=== PATIENT | female | born 1950 | race Caucasian/White ===

== ENCOUNTER → 2021-04-09 10:09 | Outpatient (CLI) | payer MEDICARE, BC, SELFPAY ==
--- NOTE | 2021-04-09 10:12 | DI.ECHO.S_ITS ---
[facility]---------+ [facility] +---------+ : : [address] : : : : [id number] : : : : Phone: [phone]+ Echocardiogram Report + + :Name: LEONIE PATRICIA Study Date: 04/09/2021 Height: 64 in : :[facility] ReadingLocation: Weight: 114 lb : : Gender: Female BSA: 1.5 m2 : :: 1950 Age: 70 yrs BP: 168/104 mmHg: :Reason For Study: Congestive Heart Failure : :Ordering Physician: ASHISH, : :NELA Performed By: Jonathan Durand : :Referring: NELA HINOJOSA : + + Interpretation Summary 1) Normal left ventricular thickness, size, wall motion, and systolic function (EF 55-60%). 2) Normal right ventricular size and function. 3) No significant valvular abnormalities. 4) No prior Echo available for comparison. Procedure: A two-dimensional transthoracic echocardiogram with color flow and Doppler was performed. The study quality was technically adequate. There is no prior echocardiogram noted for this patient. The patient was in sinus rhythm with heart rates between 53-71 bpm during the exam. Left Ventricle: The left ventricle is normal in size and wall thickness. Left ventricular systolic function is normal. The ejection fraction is estimated to be 55-60%. There are no focal wall motion abnormalities. Diastolic function could not be accurately assessed due to unobtainable data. Right Ventricle: The right ventricle is normal in size and function. Atria: Both atria are normal in size. There is no Doppler evidence for an interatrial shunt. Mitral Valve: The mitral valve is normal in structure and function. There is trace mitral regurgitation. Aortic Valve: There is mild aortic valve sclerosis. There is no aortic valve stenosis. There is trace aortic regurgitation. Tricuspid Valve: The tricuspid valve is normal in structure and function. There is a trace or physiologic amount of tricuspid regurgitation. Pulmonary artery pressures cannot be estimated because of the lack of a measurable TR jet velocity but the IVC suggests a CVP of around 8 mmHg. Pulmonic Valve: The pulmonic valve is not well seen, but is grossly normal. There is no pulmonic valvular regurgitation. Great Vessels: The aortic root is normal size. The dimensions of the ascending aorta are normal. The IVC is dilated (diameter is greater than 2.1 cm) yet it collapses greater than 50% with a sniff. This suggests a right atrial pressure of 8 mm Hg. Pericardium/ Pleura There is no pericardial effusion. There is no pleural effusion. MMode/2D Measurements & Calculations LVIDd: 4.3 cm LVOT diam: 1.9 cm LVIDs: 2.8 cm Ao root diam: 2.7 cm FS: 34.9 % asc Aorta Diam: 2.8 cm IVSd: 0.80 cm LVPWd: 0.80 cm LV rinaldi. diameter/BSA (cm/m^2): 2.8 LV sys. diameter/BSA (cm/m^2): 1.8 LA dimension: 2.8 cm RA long axis: 5.4 cm LA A2 area: 14.5 cm2 LA A4 area: 16.0 cm2 LA length (vol): 4.7 cm LA vol: 41.5 ml LA vol index: 27.0 ml/m2 TAPSE_phl: 2.5 cm Doppler Measurements & Calculations Ao V2 max: 110.0 cm/sec LVOT Max Mat: 106.0 cm/sec Ao V2 mean: 80.3 cm/sec LV V1 max P.5 mmHg Ao max P.0 mmHg LV V1 VTI: 24.8 cm Ao mean P.0 mmHg JOSE F(I,D): 2.8 cm2 Ao V2 VTI: 25.5 cm JOSE F(V,D): 2.7 cm2 sev ratio: 0.97 JOSE F indexed to BSA (cm^2/m^2): 1.8 MV E max mat: 76.7 cm/sec PA V2 max: 66.0 cm/sec MV A max mat: 60.4 cm/sec PA V2 mean: 52.0 cm/sec MV E/A: 1.3 PA mean P.0 mmHg Med Peak E' Mat: 6.9 cm/sec PA pr(Accel): 51.5 mmHg E/E' med: 11.2 Lat Peak E' Mat: 10.3 cm/sec E/E' lat: 7.4 E/e' average: 9.3 MV dec time: 0.18 sec SV(LVOT): 70.3 ml AV VR_phl: 0.96 JOSE F(VTI)/BSA_phl: 1.8 MV P1/2t-pr_phl: 54.0 msec Reading Physician:02:39 PM
--- NOTE | 2021-04-09 17:56 | DI.NM.S_ITS ---
DATE OF SERVICE: 04/09/2021 PROCEDURE PERFORMED: Exercise perfusion study. INDICATION: Heart failure, hyperlipidemia, abdominal atherosclerosis. RADIOPHARMACEUTICAL: 24.8 millicurie technetium-99m Myoview IV was injected at stress and 9.7 millicurie technetium-99m Myoview IV was injected at rest. It was a one-day protocol. CARDIAC STRESS: The patient underwent exercise perfusion study under the supervision of an attending staff. The patient walked on Roney protocol for 6 minutes and 46 seconds, achieved, achieved 99 percent of target with normal blood pressure response. Achieved 7 METs of workload and functional aerobic impairment -19 percent. No anginal symptoms. Baseline rhythm was sinus with some ST flattening in the inferolateral leads. During stress, there were some nonspecific ST-T changes without any convincing ischemic changes. Occasional PACs and PVCs were seen without any complex sustained ventricular arrhythmias. RAW DATA: There is increased up subdiaphragmatic activity as well as breast shadow seen. GATED STUDY: Stress LV ejection fraction 69 percent without any obvious wall motion abnormalities. TID ratio 1.00, which is within normal limits. Resting end- diastolic volume 35 mL. Lung/heart ratio 0.42, which is within normal limits. MYOCARDIAL PERFUSION SCAN: Stress supine and resting supine images revealed small size, mildly decreased perfusion of distal anterior wall, which got resolved during prone images, suggestive of tissue attenuation artifact, like breast tissue attenuation artifact. No convincing ischemia or infarction pattern seen during stress prone images. CONCLUSION: This is a normal myocardial perfusion study with evidence of breast tissue attenuation artifact ,which got resolved during prone images. RON -19 percent. Good exercise capacity. Normal hemodynamic response. Nonspecific ST changes. No significant arrhythmias seen. Overall, this is a low-risk myocardial perfusion scan. Latoya Ferrer - JAIME/heide/manuel doc#: [id number]/job#: [id number] dd: 04/09/2021 17:08:00 dt: 04/09/2021 17:41:00 DICTATING MD/COPIES TO: Edna Morrow MD COPIES MNE: JUSTINA;
== END ==
PROVIDERS: Family Provider Family Medicine; PCP Family Medicine; Referring Provider Family Medicine; Visit Provider Family Medicine
DX: I35.8 Other nonrheumatic aortic valve disorders (principal); I50.9 Heart failure, unspecified; I70.0 Atherosclerosis of aorta; E78.5 Hyperlipidemia, unspecified
CPT/HCPCS: 78452; 93017; 93306; A9502

== ENCOUNTER 2022-05-24 14:53 | Emergency (ER) | payer MEDICARE, BC, SELFPAY ==
[2022-05-24 14:59] VITALS: BP 191/98; PULSE 74; RESP 18; TEMP 36.3; O2SAT 99
--- NOTE | 2022-05-24 15:02 | DI.RAD.S_ITS ---
PROCEDURE: XR CHEST 1V INDICATIONS: chest pain TECHNIQUE: One view of the chest was acquired. COMPARISON: None. FINDINGS: Surgical changes and devices: None. Lungs and pleura: Lungs are clear. No pleural effusions or pneumothorax. Mediastinum: Mediastinal contours appear normal. Heart size is normal. Bones and chest wall: No suspicious bony lesions. Overlying soft tissues appear unremarkable. IMPRESSION: No acute cardiopulmonary process demonstrated radiographically. Dictated by: Andrew Velazquez M.D. on 05/24/2022 at 16:26 Approved by: Andrew Velazquez M.D. on 05/24/2022 at 16:26
[2022-05-24 15:24] LABS: Add Manual Diff / Slide Review NO; Basophils Absolute Auto 100 /uL (0-100); Basophils Percent Auto 0.8 % (0-2); Eosinophils Absolute Auto 100 /uL (0-450); Eosinophils Percent Auto 0.9 % (2-4); Hematocrit 40.7 % (36-46); Hemoglobin 13.8 g/dL (12.0-16.0); Lymphocytes Absolute Auto 900 /uL (1100-4500); Lymphocytes Percent Auto 14.2 % (25-40); Mean Corpuscular Hemoglobin 28.9 PG (26-34); Mean Corpuscular Volume 84.9 fL (80-100); Monocytes Absolute Auto 300 /uL (0-900); Monocytes Percent Auto 4.6 % (3-14); Neutrophils Absolute Auto 5100 /uL (1500-7000); Neutrophils Percent Auto 79.5 % (50-75); Platelet Count 223 X10^3/uL (150-400); Red Blood Cell Count 4.79 X10^6/uL (4.0-5.2); Red Cell Distribution Width 13.8 % (11.6-14.8); White Blood Cell Count 6.4 X10^3/uL (4.5-11.0)
[2022-05-24 15:33] LABS: Alanine Aminotransferase 23 IU/L (<35); Albumin Globulin Ratio 1.5 (1.0-2.8); Alkaline Phosphatase 48 U/L (38-126); Aspartate Aminotransferase 37 IU/L (14-36); BUN Creatinine Ratio 32.8 (6-22); Bilirubin Total 0.5 mg/dL (0.2-1.3); Blood Urea Nitrogen 22 mg/dL (7-17); Calcium 9.8 mg/dL (8.4-10.2); Carbon Dioxide 29 mmol/L (22-32); Chloride 97 mmol/L (98-107); Creatine Kinase 57 U/L (30-135); Estimated Glomerular Filt Rate > 60 mL/min (>60); Globulin 3.4 g/dL (1.7-4.1); Glucose 114 mg/dL (80-110); HEMOLYSIS < 15 (0-50); Lipase 90 U/L (23-300); Potassium 4.2 mmol/L (3.4-5.1); Sodium 137 mmol/L (137-145); Total Protein 8.4 g/dL (6.3-8.2)
[2022-05-24 15:45] LABS: Troponin I < 0.012 ng/mL (0.01-0.034)
--- NOTE | 2022-05-24 16:47 | ED.CHESTPAIN ---
HPI - Chest Pain <CAROLE Reddy - Last Filed: 05/24/22 20:20> General Chief Complaint: Chest Pain Stated Complaint: chest pain/EMS Sent Time Seen by Provider: 05/24/22 16:18 Source: patient Mode of arrival: Ambulatory History of Present Illness HPI narrative: This is a 71-year-old female presents to the emergency department with concern for left-sided chest pain that she woke up with, states she has had this in the past but states it lasted for a little longer than usual today, is not reproducible with palpation, patient had a long course of COVID illness, states she was positive on April 25 and remained positive for 2 weeks. She states that she is still having fatigue, a long recovery and has a mildly productive cough. She denies any shortness of breath, wheezing, states that the pain was along her 4th or 5th rib on the left side from the midsternal region to the lateral aspect. She denies any numbness or tingling, jaw pain, nausea, vomiting, or any other symptoms associated with this. She states that she is otherwise healthy, had a stress test completed last year without any abnormality. She takes Zetia for hyperlipidemia. She sees Dr. Tong Garcia for primary care. Is COVID vaccinated x3. Denies fever, Chills, nausea, vomiting or worsening shortness of breath. She is a nonsmoker. Endorses fatigue which is her worst symptom, states that she can only work for approximately 2 hours a day due to this. Related Data Previous Rx's Medication Instructions Recorded hydrocortisone 2.5 % topical 1 don TP QDAY ##15 01/10/17 ointment Allergies Allergy/AdvReac Type Severity Reaction Status Date / Time nortriptyline Allergy Verified 05/24/22 15:01 ondansetron [From Zofran] Allergy Verified 05/24/22 15:01 PT HAS ALLERGIES WILL BRING Allergy Unknown Uncoded 11/16/17 12:41 LIST Review of Systems <CAROLE Reddy - Last Filed: 05/24/22 20:20> Review of Systems Narrative: Review of systems is negative for acute abnormalities unless otherwise noted in HPI Patient History <CAROLE Reddy - Last Filed: 05/24/22 20:20> Surgical History History of carpal tunnel repair (08/07/15) History of hip replacement (01/23/97) History of hip replacement (02/11/90) Status post laminectomy (09/21/13) Family History Father Heart disease Hypertension Mother Cancer Exam <CAROLE Reddy - Last Filed: 05/24/22 20:20> Narrative Exam Narrative: Reviewed vitals signs and nursing notes. General: cooperative, comfortable, in no acute distress, well groomed HEENT: symmetrical facial expressions, moist mucous membranes Cardiovascular: regular rate and rhythm, S1-S2 without additional sounds, no peripheral edema, warm extremities Respiratory: normal effort, able to speak in complete sentences, without wheezing, stridor, or abnormal breath sounds. No retractions or tachypnea. GI: abdomen soft, nontender to palpation, nondistended, without masses, rebound tenderness or exquisite tenderness with exam. MSK: moves all extremities, neurovascularly intact, no weakness, normal tone Skin: brisk capillary refill, without pallor or erythema Neuro: normal speech and cognition, A&O x3, ambulatory, clear speech Psych: mental status is grossly normal, congruent mood, normal affect, pleasant and cooperative Initial Vital Signs Initial Vital Signs: Vital Signs Temperature 97.4 F L 05/24/22 14:59 Pulse Rate 74 05/24/22 14:59 Respiratory Rate 18 05/24/22 14:59 Blood Pressure 191/98 H 05/24/22 14:59 Pulse Oximetry 99 05/24/22 14:59 Oxygen Delivery Method 05/24/22 14:59 <Lilli Amin DO - Last Filed: 05/26/22 09:00> Initial Vital Signs Initial Vital Signs: Vital Signs Temperature 97.4 F L 05/24/22 14:59 Pulse Rate 74 05/24/22 14:59 Respiratory Rate 18 05/24/22 14:59 Blood Pressure 191/98 H 05/24/22 14:59 Pulse Oximetry 99 05/24/22 14:59 Oxygen Delivery Method 05/24/22 14:59 Course <CAROLE Reddy - Last Filed: 05/24/22 20:20> Orders Ordered: ED Orders 05/24/22 15:02 XR chest 1V Stat EKG-12 Lead Stat 05/24/22 15:10 Complete Blood Count AUTO DIFF Stat Comprehensive Metabolic Panel Stat D Dimer Stat Lipase Stat Magnesium Stat Troponin & CK Cardiac Panel Stat Vital Signs Vital signs: Vital Signs - 8 hr 05/24/22 14:59 05/24/22 16:54 Temperature 97.4 F L Pulse Rate 74 68 Respiratory Rate 18 18 Blood Pressure 191/98 H 159/88 H Pulse Oximetry 99 98 Oxygen Delivery Method Room Air Room Air <Lilli Amin DO - Last Filed: 05/26/22 09:00> Orders Ordered: ED Orders 05/24/22 15:02 XR chest 1V Stat EKG-12 Lead Stat 05/24/22 15:10 Complete Blood Count AUTO DIFF Stat Comprehensive Metabolic Panel Stat D Dimer Stat Lipase Stat Magnesium Stat Troponin & CK Cardiac Panel Stat Vital Signs Vital signs: Vital Signs - 8 hr 05/24/22 14:59 05/24/22 16:54 Temperature 97.4 F L Pulse Rate 74 68 Respiratory Rate 18 18 Blood Pressure 191/98 H 159/88 H Pulse Oximetry 99 98 Oxygen Delivery Method Room Air Room Air MDM - Chest Pain <CAROLE Reddy - Last Filed: 05/24/22 20:20> Lab Data Result diagrams: 05/24/22 15:10 05/24/22 15:10 Labs: Lab Results 05/24/22 05/24/22 05/24/22 Range/Units 15:10 15:10 15:10 WBC 6.4 (4.5-11.0) X10^3/uL RBC 4.79 (4.0-5.2) X10^6/uL Hgb 13.8 (12.0-16.0) g/dL Hct 40.7 (36-46) % MCV 84.9 (80-100) fL MCH 28.9 (26-34) PG MCHC 34.0 (30-36) % RDW 13.8 (11.6-14.8) % Plt Count 223 (150-400) X10^3/uL Neut % (Auto) 79.5 H (50-75) % Lymph % (Auto) 14.2 L (25-40) % [place] % (Auto) 4.6 (3-14) % Eos % (Auto) 0.9 L (2-4) % Baso % (Auto) 0.8 (0-2) % Neut # (Auto) 5100 (5116-3931) /uL Lymph # (Auto) 900 L (5877-9973) /uL [place] # (Auto) 300 (0-900) /uL Eos # (Auto) 100 (0-450) /uL Baso # (Auto) 100 (0-100) /uL D-Dimer 708 H (<500) ng/ml Sodium 137 (137-145) mmol/L Potassium 4.2 (3.4-5.1) mmol/L Chloride 97 L (98-107) mmol/L Carbon Dioxide 29 (22-32) mmol/L BUN 22 H (7-17) mg/dL Creatinine 0.67 (0.52-1.04) mg/dL Estimated GFR > 60 (>60) mL/min BUN/Creatinine Ratio 32.8 H (6-22) Glucose 114 H (80-110) mg/dL Calcium 9.8 (8.4-10.2) mg/dL Magnesium 2.0 (1.6-2.3) mg/dL Total Bilirubin 0.5 (0.2-1.3) mg/dL AST 37 H (14-36) IU/L ALT 23 (<35) IU/L Alkaline Phosphatase 48 (38-126) U/L Total Creatine Kinase 57 (30-135) U/L CK-MB (CK-2) TNP CK-MB (CK-2) Rel Index TNP Troponin I < 0.012 (0.01-0.034) ng/mL Total Protein 8.4 H (6.3-8.2) g/dL Albumin 5.0 (3.5-5.0) g/dL Globulin 3.4 (1.7-4.1) g/dL Albumin/Globulin Ratio 1.5 (1.0-2.8) Lipase 90 (23-300) U/L Imaging Data Chest x-ray: Radiologist's Impression: PROCEDURE:? XR CHEST 1V ? INDICATIONS:? chest pain ? TECHNIQUE:? One view of the chest was acquired.? ? COMPARISON:? None. ? FINDINGS:? ? Surgical changes and devices:? None.? ? Lungs and pleura:? Lungs are clear.? No pleural effusions or pneumothorax.? ? Mediastinum:? Mediastinal contours appear normal.? Heart size is normal.? ? Bones and chest wall:? No suspicious bony lesions.? Overlying soft tissues appear unremarkable.? ? IMPRESSION:? No acute cardiopulmonary process demonstrated radiographically. ? ? Dictated by: Andrew Velazquez M.D. on 05/24/2022 at 16:26 ? ? Approved by: Andrew Velazquez M.D. on 05/24/2022 at 16:26 ? ECG Data Interpretation: EKG independently reviewed by myself at 1521 reveals normal sinus rhythm at 67 bpm with regular axis and intervals. No STEMI, ST segment changes, arrhythmia, or acute ischemic changes. MDM Narrative Medical decision making narrative: This is a 71-year-old male who presents emergency department complaining of chest pain which is not reproducible, substernal, midline which she states radiates to the lateral mid axillary line along her 5th or 6th rib space on the left. She endorses having COVID illness and was positive for 2 weeks last month, she was positive into the early days of May and states that she still has ongoing fatigue, denies any shortness of breath, weakness, sensation changes, fevers or other focal symptoms. Her pain was not reproducible with palpation, chest x-ray is negative for acute cardiopulmonary process, breath sounds are clear bilaterally without increased effort, hypoxia, tachypnea, or other abnormality. Patient's lab work overall is reassuring, she does not have any leukocytosis or anemia, her D-dimer is elevated to 708 but this is not clinically significant for her age. Age-Adjusted D-dimer for Venous Thromboembolism (VTE) from [employer] on 05/24/2022 All calculations should be rechecked by clinician prior to use RESULT SUMMARY: 720 ?g/L Age-adjusted D-dimer cutoff, FEU VTE unlikely Reported D-dimer is less than or equal to cutoff; consider alternative diagnosis INPUTS: Age ?> 71 years D-dimer level reported by lab ?> 708 ?g/L D-dimer unit type ?> 1 = FEU (unadjusted cutoff typically ~500 or 0.50) There is no leukocytosis, anemia, creatinine is 0.67, no elevation to her liver enzymes, troponin is 0.012 without any other findings on her lab work of concern. 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 Encourage patient to stay hydrated, rest when needed, follow-up with her primary care provider, return to the emergency department if she develops a fever, chills, any worsening symptoms whatsoever. Multiple causes of chest pain considered including CA, PE, pneumothorax, pneumonia, aortic dissection, and pleurisy. Patient reports no radiation, no diaphoresis, no provocation with exertion, and no vomiting. Differential also includes pleurisy, costochondritis, muscle strain, pneumonia. Patient is appropriate and amenable to discharge home. Vital signs are stable on repeat examination is unremarkable. Patient has been informed of results. Patient has been given strict return to ER precautions for any new or worsening symptoms. Patient understands to follow up closely with outpatient providers as instructed. Patient understands plan and agrees to discharge home. All questions and concerns answered at this time. <Lilli Amin, - Last Filed: 05/26/22 09:00> Lab Data Labs: Lab Results 05/24/22 05/24/22 05/24/22 Range/Units 15:10 15:10 15:10 WBC 6.4 (4.5-11.0) X10^3/uL RBC 4.79 (4.0-5.2) X10^6/uL Hgb 13.8 (12.0-16.0) g/dL Hct 40.7 (36-46) % MCV 84.9 (80-100) fL MCH 28.9 (26-34) PG MCHC 34.0 (30-36) % RDW 13.8 (11.6-14.8) % Plt Count 223 (150-400) X10^3/uL Neut % (Auto) 79.5 H (50-75) % Lymph % (Auto) 14.2 L (25-40) % [place] % (Auto) 4.6 (3-14) % Eos % (Auto) 0.9 L (2-4) % Baso % (Auto) 0.8 (0-2) % Neut # (Auto) 5100 (3918-9372) /uL Lymph # (Auto) 900 L (7010-8596) /uL [place] # (Auto) 300 (0-900) /uL Eos # (Auto) 100 (0-450) /uL Baso # (Auto) 100 (0-100) /uL D-Dimer 708 H (<500) ng/ml Sodium 137 (137-145) mmol/L Potassium 4.2 (3.4-5.1) mmol/L Chloride 97 L (98-107) mmol/L Carbon Dioxide 29 (22-32) mmol/L BUN 22 H (7-17) mg/dL Creatinine 0.67 (0.52-1.04) mg/dL Estimated GFR > 60 (>60) mL/min BUN/Creatinine Ratio 32.8 H (6-22) Glucose 114 H (80-110) mg/dL Calcium 9.8 (8.4-10.2) mg/dL Magnesium 2.0 (1.6-2.3) mg/dL Total Bilirubin 0.5 (0.2-1.3) mg/dL AST 37 H (14-36) IU/L ALT 23 (<35) IU/L Alkaline Phosphatase 48 (38-126) U/L Total Creatine Kinase 57 (30-135) U/L CK-MB (CK-2) TNP CK-MB (CK-2) Rel Index TNP Troponin I < 0.012 (0.01-0.034) ng/mL Total Protein 8.4 H (6.3-8.2) g/dL Albumin 5.0 (3.5-5.0) g/dL Globulin 3.4 (1.7-4.1) g/dL Albumin/Globulin Ratio 1.5 (1.0-2.8) Lipase 90 (23-300) U/L ECG Data Interpretation: EKG independently reviewed by myself at 1521 reveals normal sinus rhythm at 67 bpm with regular axis and intervals. No STEMI, ST segment changes, arrhythmia, or acute ischemic changes. Sinus rhythm, no acute EKG changes. Rate of 67 ND 136 QRS is 74 and QTC of 409. No priors for comparison. Discharge Plan Departure Patient Disposition: Home Clinical Impression: Chest pain, pleuritic, [id number] condition Instructions: DI for Atypical Chest Pain, DI for Chest Pain, Post-COVID Syndrome Activity Restrictions/Additional Instructions: *You have been diagnosed with chest pain after a long course of COVID. Symptoms like chest pain, shortness of breath, cough, fatigue, and persistent exertional shortness of breath complaints are common for people after COVID and especially with how recent your illness was. This is most likely related to your post COVID illness. Your blood pressure was elevated today but I assume you are likely anxious when you came in, could be dehydrated and could be having pleuritic chest pain or atypical chest pain. We will call you if your D-dimer is elevated with concern for a blood clot and if you should come back to the emergency department. At this point please drink plenty of water, rest, try to avoid working yourself into exertion. Work for short periods of time and allow yourself plenty of time to rest, nourished your body with healthy food, if you have ongoing congestion, please take Zyrtec for a runny nose or congestion. Your chest x-ray does not show any pneumonia, it looks clear, this is great news, if you develop a fever, chills, worsening symptoms of any kind, please see Dr. Nava for another evaluation. Your lab work overall is reassuring as well, your electrolytes are balanced, you could probably use a drink of water, but otherwise I think this is ongoing COVID syndrome following COVID illness. Hope you feel better soon, please give yourself time to rest and follow-up with Dr. Nava in the next 1-2 weeks. *What to do: *Please continue to take your regular medications as directed. [ ] New medication prescriptions sent to your pharmacy: [ ] [ ] New medication written as a paper prescription [ x] No new medications given *Please follow up with your primary care provider in 2-3 days, call for an appointment. Let them know you were seen in the Emergency Department and that we asked that you be seen for follow-up. We will electronically transmit a record of today's note if your PCP is in our system *If you do not have a primary care provider please contact [phone] to establish care with one of the [facility] primary care providers. *Return to Emergency Department if you should have any new, worsening, or concerning symptoms, such as [fever greater than 101F, chills, worsening pain, persistent vomiting or other bothersome symptoms]. Prescriptions: No Action hydrocortisone 2.5 % ointment 1 don TP QDAY Qty: 15 0RF Referrals: Bouchra Fortune MD [Primary Care Provider] - Visit Report Forms: Patient Portal/API
[2022-05-24 16:54] VITALS: BP 159/88; PULSE 68; RESP 18; O2SAT 98
[2022-05-24 17:59] LABS: D Dimer 708 ng/ml (<500)
== END 2022-05-24 16:55 | disposition home or self-care (01) ==
PROVIDERS: Emergency Medicine; Emergency Provider Nurse Practitioner Critical Care Medicine; Family Provider Family Medicine; PCP Family Medicine
DX: R07.89 Other chest pain (principal); U09.9 Post COVID-19 condition, unspecified
CPT/HCPCS: 71045; 80053; 82550; 83690; 83735; 84484; 85025; 85379; 93005; 93010; 99281; 99284

== ENCOUNTER → 2024-10-18 12:38 | Outpatient (CLI) | payer MEDICARE, BC, SELFPAY ==
--- NOTE | 2024-10-18 12:42 | DI.ECHO.S_ITS ---
[facility] : : [address] : : [place] : : [id number] : : Phone: [phone] Echocardiogram Report + + :Name: LEONIE PATRICIA Study Date: 10/18/2024 Height: 63.5 in: :[facility] ReadingLocation: Weight: 118 lb : : Gender: Female BSA: 1.6 m2 : :: 1950 Age: 74 yrs BP: 132/93 mmHg: :Reason For Study: AORTIC STENOSIS, ELEVATED BNP : :Ordering Physician: YAO GRANDA : :E Performed By: Sheryl Mccollum : :Referring: YAO GRANDA E : + + Interpretation Summary Normal biventricular size and systolic function. LVEF is 55 to 60% Normal atrial sizes. Aortic sclerosis without stenosis. Mild tricuspid regurgitation. Other findings as below. When compared to TTE dated 04/09/2021, no clinically significant changes have occurred. Procedure: A two-dimensional transthoracic echocardiogram with color flow and Doppler was performed. The study quality was technically adequate. Comparison is made with the echocardiogram of 04/09/2021. The patient was in sinus rhythm with heart rates between 57-69 bpm during the exam. Left Ventricle: The left ventricle is normal in size and wall thickness. The ejection fraction is estimated to be 55-60%. Diastolic parameters suggest probable normal left ventricular diastolic function and normal filling pressures. Right Ventricle: The right ventricle is normal in size and function. Atria: The left atrial size is normal. Right atrial size is normal. Mitral Valve: The mitral valve leaflets appear to open well. There is trace mitral regurgitation. Aortic Valve: The aortic valve is trileaflet. The aortic valve opens well. There is mild aortic valve sclerosis. There is no aortic valve stenosis. No aortic regurgitation is present. Tricuspid Valve: The tricuspid valve leaflets are thin and pliable. There is mild tricuspid regurgitation. The right ventricular systolic pressure is estimated to be at least 20 mmHg based on an estimated right atrial pressure of 3 mm Hg. Pulmonic Valve: The pulmonic valve leaflets are thin and pliable; valve motion is normal. There is no pulmonic valvular regurgitation. Great Vessels: The aortic root is normal size. The dimensions of the ascending aorta are normal. The IVC is of normal diameter and collapses greater than 50% with a sniff. This suggests a low right atrial pressure of 3 mm Hg. Pericardium/ Pleura There is no pericardial effusion. There is no pleural effusion. MMode/2D Measurements & Calculations LVIDd: 4.0 cm LVOT diam: 2.0 cm LVIDs: 2.6 cm Ao root diam: 2.7 cm FS: 33.6 % asc Aorta Diam: 2.8 cm EPSS: 0.26 cm Ao Arch Diam (Prox Trans): 2.7 cm IVSd: 0.91 cm LVPWd: 0.51 cm LV rinaldi. diameter/BSA (cm/m^2): 2.6 LV sys. diameter/BSA (cm/m^2): 1.7 LA A2 area: 18.1 cm2 RA long axis: 5.7 cm LA A4 area: 14.7 cm2 RA area: 14.4 cm2 LA length (vol): 4.7 cm RA vol: 30.9 ml LA vol: 47.9 ml RA : 19.8 ml/m2 LA vol index: 30.8 ml/m2 IVC diam: 1.8 cm RVD1 (basal): 3.0 cm RVD2 (mid): 2.4 cm TAPSE: 2.6 cm Doppler Measurements & Calculations Ao V2 max: 140.5 cm/sec LVOT Max Mat: 88.8 cm/sec Ao V2 mean: 97.3 cm/sec LV V1 max P.2 mmHg Ao max P.0 mmHg LV V1 VTI: 20.4 cm Ao mean P.3 mmHg JOSE F(I,D): 2.2 cm2 Ao V2 VTI: 28.5 cm JOSE F(V,D): 1.9 cm2 sev ratio: 0.72 JOSE F indexed to BSA (cm^2/m^2): 1.4 MV E max mat: 70.6 cm/sec TR max mat: 208.6 cm/sec MV A max mat: 65.7 cm/sec TR max P.4 mmHg MV E/A: 1.1 PA V2 max: 75.8 cm/sec Med Peak E' Mat: 5.7 cm/sec PA V2 mean: 57.3 cm/sec E/E' med: 12.5 PA mean P.4 mmHg Lat Peak E' Mat: 9.3 cm/sec PA pr(Accel): 34.0 mmHg E/E' lat: 7.6 E/e' average: 10.0 MV dec time: 0.13 sec SV([facility]): 62.3 ml Reading Physician:11:01 AM
== END ==
PROVIDERS: Family Provider Family Medicine; PCP Family Medicine; Referring Provider Family Medicine; Visit Provider Family Medicine
DX: I35.0 Nonrheumatic aortic (valve) stenosis (principal); I70.0 Atherosclerosis of aorta; R79.89 Other specified abnormal findings of blood chemistry; I07.1 Rheumatic tricuspid insufficiency
CPT/HCPCS: 93306